=== PATIENT | female | born 1990 | race Two or more races ===

== ENCOUNTER 2018-05-22 23:43 | Observation (INO) | payer OTHER ==
[2016-05-02 21:08] VITALS: BP 113/67
[~2018-05-22 23:43] MED LIST: HYDR-2761 PO; ONDA4TAB10 SL
[2018-05-22] MEDS: IV RINGERS,LACTATED 1000ML 1,000 ML IV SCH (23:45)
[2018-05-23] MEDS: IV RINGERS,LACTATED 1000ML 1,000 ML IV SCH (01:56)
[2018-05-23] MEDS: ACETAMINOPHEN 500 MG TABLET PO PRN ×2 (02:33→09:42)
[2018-05-23 10:10] LABS: BILIRUBIN,URINE NEGATIVE (NEG); CLARITY,URINE CLEAR; COLOR,URINE YELLOW; NITRITE,URINE NEGATIVE (NEG); PROTEIN,URINE NEGATIVE (NEG-TRACE); UROBILINOGEN,URINE 0.2 mg/dL (0.2 mg/dL)
[2018-05-23 10:18] LABS: BACTERIA,URINE 0 /HPF (0-FEW); RBC,URINE 0 /HPF (0-2); SQUAMOUS EPITHELIAL CELL,UR FEW /LPF; WBC,URINE 0 /HPF (0-4)
[2018-05-23 10:20] LABS: AMPHETAMINE/METHAMPHETAMINE NEG (NEG); BARBITURATES NEG (NEG); BENZODIAZEPINES NEG (NEG); CANNABINOIDS NEG (NEG); COCAINE NEG (NEG); METHADONE NEG (NEG); OPIATES NEG (NEG); PHENCYCLIDINE NEG (NEG)
== END 2018-05-23 10:10 | disposition home or self-care (01) ==
LOC: 3 SO LND 23:43
PROVIDERS: ADMIT Specialist; ATTEND Specialist
DX: O26.893 Other specified pregnancy related conditions, third trimester (principal); R10.13 Epigastric pain; O21.2 Late vomiting of pregnancy; O24.419 Gestational diabetes mellitus in pregnancy, unspecified control; O23.43 Unspecified infection of urinary tract in pregnancy, third trimester; Z3A.31 31 weeks gestation of pregnancy
CPT/HCPCS: 80307; 81001; 82962; 96360; 96361; G0378; G0379; 59025; J7120